=== PATIENT | female | born 1965 | race Caucasian/White ===

== ENCOUNTER 2021-08-08 09:06 | Emergency (ER) | payer MEDICAID ==
[~2021-08-08] VITALS: Ht 170.2 cm; Wt 89.6 kg
[~2021-08-08 09:06] MED LIST: [UNRECOGNIZED DRUG - CODE] PO
[2021-08-08 09:32] VITALS: BP 153/108
[2021-08-08] MEDS ORDERED: ondansetron/PF 4mg/2ml inj IV ONE (09:35)
[2021-08-08] MEDS ORDERED: normal saline 1000ML IV soln IVB ONE (09:35)
[2021-08-08 10:21] LABS: BASOPHILS # (AUTO) 0.1 X10'3 (0-0.2); BASOPHILS % (AUTO) 1.3 % (0-1); EOSINOPHILS % (AUTO) 0.1 % (0-6); HEMATOCRIT 41.1 % (35.0-45.0); HEMOGLOBIN 14.5 g/dl (12.0-16.0); LYMPHOCYTES # (AUTO) 1.2 X10'3 (1.1-4.8); LYMPHOCYTES % (AUTO) 12.1 % (21-51); MEAN CORPUSCULAR HEMOGLOBIN 32.9 PG (27.0-31.0); MEAN CORPUSCULAR HGB CONC 35.3 g/dL (33.0-36.5); MEAN PLATELET VOLUME 6.9 FL (7.4-10.4); MONOCYTES # (AUTO) 0.4 X10'3 (0-0.9); MONOCYTES % (AUTO) 4.4 % (2-12); NEUTROPHILS % (AUTO) 82.1 % (42-75); PLATELET COUNT 321 X10'3 (140-440); RED BLOOD COUNT 4.42 X10'6 (4.20-5.60); RED CELL DISTRIBUTION WIDTH 13.9 % (11.5-14.5); WHITE BLOOD COUNT 9.8 X10'3 (4.5-11.0)
[2021-08-08 10:33] LABS: ALANINE AMINOTRANSFERASE 29 U/L (12-78); ALBUMIN 3.9 G/DL (3.4-5.0); ALBUMIN/GLOBULIN RATIO 0.9 (1.1-1.5); ALKALINE PHOSPHATASE 74 IU/L (46-116); ANION GAP 19 (8-16); ASPARTATE AMINO TRANSFERASE 32 U/L (10-37); BILIRUBIN,TOTAL 0.5 MG/DL (0.1-1.0); BLOOD UREA NITROGEN 11 MG/DL (7-18); BUN/CREATININE RATIO 15.5 (6.6-38.0); CALCIUM 8.3 MG/DL (8.5-10.1); CHLORIDE 92 MMOL/L (99-107); CREATININE 0.71 MG/DL (0.40-0.90); ETHANOL 0.249 GM/DL (0.0-0.010); GLUCOSE 127 MG/DL (70-104); MAGNESIUM 1.6 MG/DL (1.5-2.4); POTASSIUM 3.5 MMOL/L (3.5-5.1); SODIUM 130 MMOL/L (135-145); TOTAL PROTEIN 8.2 G/DL (6.4-8.2); eGFR 86 ML/MIN
== END 2021-08-08 21:35 | disposition left against medical advice (07) ==
LOC: ER 09:06
DX: F10.129 Alcohol abuse with intoxication, unspecified (principal); R11.2 Nausea with vomiting, unspecified; Z79.899 Other long term (current) drug therapy; Y90.0 Blood alcohol level of less than 20 mg/100 ml
CPT/HCPCS: 36415; 80053; 80320; 83735; 85025; 99283